=== PATIENT | female | born 1965 | race Caucasian/White ===

== ENCOUNTER 2020-01-16 15:10 | Emergency (ER) | payer MEDICAID, MEDICARE, OTHER ==
[~2020-01-16] VITALS: Ht 160 cm; Wt 71.5 kg
[~2020-01-16 15:10] MED LIST: DIAZ5TAB PO
[2020-01-16 15:29] VITALS: BP 120/79
[2020-01-16] MEDS ORDERED: CYCL-1 PO (16:23)
[2020-01-16] MEDS ORDERED: LIDOcaine 5% patch TP SCH (16:25)
[2020-01-16] MEDS ORDERED: ketorolac tromethamine 15mg/ml inj. IM ONE (16:25)
== END 2020-01-16 17:21 | disposition home or self-care (01) ==
LOC: ER 15:10
DX: S16.1XXA Strain of muscle, fascia and tendon at neck level, initial encounter (principal); R07.89 Other chest pain; M25.551 Pain in right hip; M25.552 Pain in left hip; M19.90 Unspecified osteoarthritis, unspecified site; M79.7 Fibromyalgia; Z88.1 Allergy status to other antibiotic agents; Z79.899 Other long term (current) drug therapy; V69.9XXA Occupant (driver) (passenger) of heavy transport vehicle injured in unspecified traffic accident, initial encounter; Y93.89 Activity, other specified; Y92.488 Other paved roadways as the place of occurrence of the external cause; Y99.8 Other external cause status
CPT/HCPCS: 71111; 73522; 96372; 99284; J1885